=== PATIENT | male | born 1985 | race Caucasian/White ===

== ENCOUNTER 2023-10-18 16:39 | Emergency (ER) | payer SELFPAY ==
[2023-10-18 16:53] VITALS: BP 131/86; PULSE 63; RESP 20; TEMP 98.8; BMI 25.0
[2023-10-18 17:49] LABS: BASO % 0.9 % (0-2.0); EOS % 9.3 % (0-4.5); HEMATOCRIT 43.6 % (35.4-49); HEMOGLOBIN 15.1 GM/dL (11.7-16.9); MCH 30.3 pg (25.7-33.7); MCHC 34.7 g/dl (32.0-35.9); MEAN CELL VOLUME 87.4 fl (80-96); MEAN PLT VOLUME 7.6 fl (7.5-11.1); MONO % 6.7 % (3.8-10.2); NEUT % 41.1 % (42.8-82.8); PLATELET COUNT 249 10^3/uL (134-434); RBC 4.99 M/mm3 (4.00-5.60); RDW 13.3 % (11.9-15.9)
[2023-10-18 18:16] LABS: POTASSIUM 3.7 mmol/L (3.5-5.1)
[2023-10-18 18:18] LABS: ALBUMIN 4.3 g/dl (3.4-5.0); BLOOD UREA NITROGEN 15.3 mg/dL (7-18); CALCIUM 9.2 mg/dL (8.5-10.1)
[2023-10-18 18:22] LABS: CREATININE 1.3 mg/dL (0.55-1.3)
[2023-10-18 18:23] LABS: BILIRUBIN,TOTAL 0.3 mg/dL (0.2-1); TOT PROT 7.6 g/dl (6.4-8.2)
[2023-10-18] MEDS ORDERED: ALBUTEROL SO4 2.5/IPRATROPIUM 0.5 INH SOL 3 ML VIAL.NEB. NEB ONE (19:11)
[2023-10-18] MEDS: ALBUTEROL SO4 2.5/IPRATROPIUM 0.5 INH SOL 3 ML VIAL.NEB. NEB ONE (19:12)
== END 2023-10-18 19:34 | disposition home or self-care (01) ==
LOC: JERFT 16:39
PROC: 3E0F7GC Introduction of Other Therapeutic Substance into Respiratory Tract, Via Natural or Artificial Opening (ICD-10-PCS; principal; 2023-10-18)
DX: R05.3 Chronic cough (principal); R07.81 Pleurodynia; M54.6 Pain in thoracic spine; Z20.822 Contact with and (suspected) exposure to COVID-19
CPT/HCPCS: 0241U-QW; 36415; 71250-TC; 80053; 85025; 85379; 93005; 93010; 99285-25